=== PATIENT | male | born 1935 | race Two or more races ===

== ENCOUNTER 2017-08-31 09:41 | Emergency (ER) | payer BC, MEDICARE, OTHER ==
[~2017-08-31] VITALS: Ht 167.6 cm; Wt 88.5 kg
--- NOTE | 2017-08-31 09:41 | NUR ---
[id number] FROM [facility]: NOSE BRIDGE INJURY S/P TRIP AND FALL. NAD NOTED. PT AAO X3, VSS. MD AT BEDSIDE FOR EVAL.
[2017-08-31] MEDS ORDERED: TDAP [DIPH/PERTUSSIS/TET] 0.5 ML VIAL IM ONE ×2 (10:17→10:30)
--- NOTE | 2017-08-31 10:22 | NUR ---
PT TO CT
--- NOTE | 2017-08-31 12:08 | NUR ---
CALLED [facility] TO OBTAIN THE PATIENT'S RESIDENCE ADRESS.
--- NOTE | 2017-08-31 12:09 | NUR ---
REQUESTED TRANSPORTATION WITH [facility] ETA 60 MIN
--- NOTE | 2017-08-31 13:02 | NUR ---
Patient discharged to [facility] in stable condition. Written and verbal after care instructions given. Patient verbalizes understanding of instruction.
[2017-08-31 13:04] VITALS: BP 132/83
== END 2017-08-31 13:05 | disposition home or self-care (01) ==
LOC: ER 09:43
DX: S00.31XA Abrasion of nose, initial encounter (principal); S00.81XA Abrasion of other part of head, initial encounter; G30.9 Alzheimer's disease, unspecified; F02.80 Dementia in other diseases classified elsewhere, unspecified severity, without behavioral disturbance, psychotic disturbance, mood disturbance, and anxiety; W01.0XXA Fall on same level from slipping, tripping and stumbling without subsequent striking against object, initial encounter; Y93.89 Activity, other specified; Y92.89 Other specified places as the place of occurrence of the external cause; Y99.8 Other external cause status
CPT/HCPCS: 70450; 70486; 90471; 90715; 99284; A4606; Z7610

== ENCOUNTER 2019-03-14 13:08 | Emergency (ER) | payer BC, OTHER ==
[~2019-03-14] VITALS: Ht 167.6 cm; Wt 75.3 kg
--- NOTE | 2019-03-14 13:12 | NUR ---
PT [id number] FROM [facility], C/O NOSEBLEEDING SINCE THIS MORNING, PT IS AAOX1, NOT IN RESPIRATORY DISTRESS, V/S STABLE, KEPT RESTED AND COMFORTABLE, WILL CONTINUE TO MONITOR.
--- NOTE | 2019-03-14 13:30 | NUR ---
IV LINE ESTABLISHED, BLOOD DRAWNED AND SENT TO LAB.
[2019-03-14 13:35] LABS: BASOPHILS # (AUTO) 0.1 /CMM (0.0-0.2); BASOPHILS % (AUTO) 0.6 % (0.0-2.0); EOSINOPHILS % (AUTO) 3.5 % (0.0-6.0); HEMATOCRIT 37 % (39-51); HEMOGLOBIN 12.5 g/dL (13.5-17.5); LYMPHOCYTES # (AUTO) 1.6 /CMM (0.8-4.8); LYMPHOCYTES % (AUTO) 19.7 % (20.0-44.0); MEAN CORPUSCULAR HGB CONC 34 g/dl (31.0-36.0); MEAN CORPUSCULAR VOLUME 96 fL (80-96); MONOCYTES # (AUTO) 0.6 /CMM (0.1-1.30); MONOCYTES % (AUTO) 6.8 % (2.0-12.0); NEUTROPHILS # (AUTO) 5.7 /CMM (1.8-8.9); NEUTROPHILS % (AUTO) 69.4 % (43.0-81.0); PLATELET COUNT (AUTO) 195 /CMM (150-450); RED BLOOD CELL COUNT(AUTO) 3.84 MIL/uL (4.5-6.0); WHITE BLOOD COUNT (AUTO) 8.3 K/uL (4.3-11.0)
[2019-03-14 13:47] LABS: CALCIUM, SERUM 8.5 mg/dL (8.5-10.1); CARBON DIOXIDE 25 mmol/L (21-32); CHLORIDE 107 mmol/L (98-107); CREATININE 1.5 mg/dL (0.6-1.3); GLUCOSE 132 mg/dL (74-106); POTASSIUM 4.5 mmol/L (3.5-5.1); SODIUM SERUM 139 mmol/L (136-145); UREA NITROGEN, BLOOD 34 mg/dL (7-18)
[2019-03-14] MEDS ORDERED: IV NS 0.9% 500 ML BAG IV ONE (15:00)
--- NOTE | 2019-03-14 15:33 | NUR ---
CALLED [id number] TRIP#[id number]
[2019-03-14 16:05] VITALS: BP 132/67
--- NOTE | 2019-03-14 16:05 | NUR ---
IV removed. Catheter intact and site benign. Pressure and 4x4 applied to site. No bleeding noted. Patient discharged to home in stable condition. Written and verbal after care instructions given. Patient verbalizes understanding of instruction.
== END 2019-03-14 16:06 | disposition home or self-care (01) ==
LOC: ER 13:08
DX: R04.0 Epistaxis (principal); D64.9 Anemia, unspecified; N28.9 Disorder of kidney and ureter, unspecified; F03.90 Unspecified dementia, unspecified severity, without behavioral disturbance, psychotic disturbance, mood disturbance, and anxiety; I10 Essential (primary) hypertension; E78.5 Hyperlipidemia, unspecified; K21.9 Gastro-esophageal reflux disease without esophagitis; N40.0 Benign prostatic hyperplasia without lower urinary tract symptoms; F32.9 Major depressive disorder, single episode, unspecified; Z99.3 Dependence on wheelchair
CPT/HCPCS: 36415; 80048; 85025; 85730; 99283; A6403; J7040